=== PATIENT | male | born 1955 | race Caucasian/White ===

== ENCOUNTER 2017-11-29 16:50 | Inpatient (IN) | payer OTHER ==
--- NOTE | 2017-11-29 16:57 | PDOC ---
History of Present Illness - General History Source: Patient Exam Limitations: No Limitations - History of Present Illness Initial Comments: 11/29/17 17:13 The patient is a 62 year old male, with a significant past medical history of Lupus (on 2 mg Prednisone), who presents to the emergency department with, productive cough, fever, chills, and headache. As per patient, he was at urgent care today for symptoms when the doctors noticed pneumonia on chest x-ray and advised him to report to the ER for further management. At urgent care, he received nebulizer treatments and Tylenol. Urgent care notes he was hypoxic to 92% further prompting his visit to the ER. He denies any calf swelling or tenderness. He denies any recent travel or history of DVT or PE. He denies any recent hemoptysis dizziness. He denies any recent nausea, vomit, diarrhea or constipation. He denies any recent chest pain or shortness of breath. He denies any recent dysuria, frequency, urgency or hematuria. Allergies: Ceftriaxone sodium. Past surgical history: None reported. Social History: Nonsmoker. Denies EtOH use and recreational drug use. Primary Care Physician: Dr. Abraham Watson <Edna Bingham - Last Filed: 11/29/17 17:12> <Kacey Ontiveros - Last Filed: 11/29/17 18:29> - General Chief Complaint: Respiratory Stated Complaint: PNEUMONIA MRSA Time Seen by Provider: 11/29/17 16:54 Past History <Edna Bingham - Last Filed: 11/29/17 17:12> - Surgical History Appendectomy: Yes - Immunization History TDAP Vaccination: No - Suicide/Smoking/Psychosocial Hx Smoking Status: No Smoking History: Unknown if ever smoked Number of Cigarettes Smoked Daily: 0 <Kacey Ontiveros - Last Filed: 11/29/17 18:29> - Past Medical History Allergies/Adverse Reactions: Allergies Allergy/AdvReac Type Severity Reaction Status Date / Time ceftriaxone sodium Allergy Unknown Verified 11/29/17 18:05 [From Chen] Home Medications: Ambulatory Orders Buspirone HCl [Buspar -] 5 mg PO TID 10/24/12 Fluoxetine HCl [Prozac -] 20 mg PO Q48H 10/24/12 Fluoxetine HCl [Prozac -] 40 mg PO Q48H 10/24/12 Dapsone - 50 mg PO DAILY 11/29/17 Lisinopril 10 mg PO DAILY 11/29/17 predniSONE [Deltasone -] 2 mg PO DAILY 11/29/17 Review of Systems - Review of Systems Able to Perform ROS?: Yes Comments:: 11/29/17 17:13 +GENERAL/CONSTITUTIONAL: Fever. Chills. No weakness. HEAD, EYES, EARS, NOSE AND THROAT: No change in vision. No ear pain or discharge. No sore throat. CARDIOVASCULAR: No chest pain or shortness of breath. RESPIRATORY: Cough. No wheezing, or hemoptysis. GASTROINTESTINAL: No nausea, vomiting, diarrhea or constipation. GENITOURINARY: No dysuria, frequency, or change in urination. MUSCULOSKELETAL: No joint or muscle swelling or pain. No neck or back pain. SKIN: No rash NEUROLOGIC: Headache. No vertigo, loss of consciousness, or change in strength/ sensation. ENDOCRINE: No increased thirst. No abnormal weight change. HEMATOLOGIC/LYMPHATIC: No anemia, easy bleeding, or history of blood clots. ALLERGIC/IMMUNOLOGIC: No hives or skin allergy. All Other Systems: Reviewed and Negative <Edna Bingham - Last Filed: 11/29/17 17:12> *Physical Exam - Physical Exam Comments: 11/29/17 17:14 GENERAL: Tremulous. Awake, alert, and fully oriented, in no acute distress HEAD: No signs of trauma EYES: PERRLA, EOMI, sclera anicteric, conjunctiva clear ENT: Auricles normal inspection, hearing grossly normal, nares patent. Moist mucosa NECK: Normal ROM, supple, no lymphadenopathy, JVD, or masses +LUNGS: Crackles at the right bases. No wheezes. No accessory muscle usage. HEART: Tachycardic. Regular rhythm, normal S1 and S2, no murmurs, rubs or gallops ABDOMEN: Soft, nontender, normoactive bowel sounds. No guarding, no rebound. No masses EXTREMITIES: Normal range of motion, no edema. No erythema or tenderness. DP/PT pulses 2+ and symmetric. Warm and well perfused. NEUROLOGICAL: ANO x3. Moves all extremities. Normal speech, normal gait SKIN: Warm, Dry, normal turgor, no rashes or lesions noted. <Edna Bingham - Last Filed: 11/29/17 17:12> Heart Score/ECG Review #1 General ECG Interpretation: Sinus Rhythm, Normal Rate (91), Normal Intervals, No acute ischemic changes <Kacey Ontiveros - Last Filed: 11/29/17 18:29> ED Treatment Course - LABORATORY CBC & Chemistry Diagram: 11/29/17 17:12 11/29/17 17:12 <Kacey Ontiveros - Last Filed: 11/29/17 18:29> Medical Decision Making - Medical Decision Making 11/29/17 16:54 62 yo male h/o lupus, on prednisone 2 mg daily, here with cough congestion fever x 2 days. does feel lightheaded today. no n/v no chest pain. no leg swelling. no h/o pe or dvt. no mod factors. pt was seen at [facility] urgent care , diagnosed with pna, had low oxygen sats sent to ed for admisson. pcp is dr wynn. on exam awake alert faint crackles lung bases R > l, no wheezing. no accessory m use. heart tachy. skin warm and dry ext no edema. differential: pnuemonia, effusion, sepsis, plan labs ekg cultures, ladctate. iv hydration due to comorbidity and low oxygen sats will admit med surg for iv antiobtiocs. 11/29/17 18:03 dapsone 25mg, 50 daily prednisone 1 mg 2 mg daily angela hong wasserman. desktop support associate. <Kacey Ontiveros - Last Filed: 11/29/17 18:29> *DC/Admit/Observation/Transfer - Attestations Scribe Attestion: 11/29/17 17:14 Documentation prepared by Edna Bingham, acting as medical device assembler for Kacey Ontiveros MD. <Edna Bingham - Last Filed: 11/29/17 17:12> - Discharge Dispostion Decision to Admit order: Yes <Kacey Ontiveros - Last Filed: 11/29/17 18:29> Diagnosis at time of Disposition: Pneumonia - Discharge Dispostion Condition at time of disposition: Good - Referrals Referrals: Abraham Meehan MD [Primary Care Provider] -
[2017-11-29] MEDS ORDERED: SODIUM CHLORIDE 0.9% 1000 ML INFUS.BAG IV ONE (17:00)
[2017-11-29 17:16] LABS: PH,URINE 6.5 (4.5-8); URINE APPEARANCE Clear; URINE BILIRUBIN Negative (NEGATIVE); URINE COLOR Yellow; URINE GLUCOSE (UA) Negative (NEGATIVE); URINE KETONE Trace (NEGATIVE); URINE LEUK ESTERASE Negative (NEGATIVE); URINE NITRITE Negative (NEGATIVE); URINE PROTEIN 1+ (NEGATIVE); URINE UROBILINOGEN 0.2 (0.2-1.0)
[2017-11-29] MEDS ORDERED: VANCOMYCIN 1,000 MG in DEXTROSE 5%-WATER - 250 ML IVPB ONE (17:35)
[2017-11-29 17:36] LABS: HEMATOCRIT 35.1 % (35.4-49); HEMOGLOBIN 10.8 GM/dl (11.7-16.9); MCHC 30.8 g/dl (32.0-35.9); MEAN CELL VOLUME 71.5 fl (80-96); MEAN PLT VOLUME 8.7 fl (7.5-11.1); PLATELET COUNT 192 K/MM3 (134-434); RBC 4.91 M/mm3 (4.00-5.60); RDW 15.3 % (11.9-15.9); WHITE BLOOD COUNT 13.9 K/mm3 (4.0-10.8)
[2017-11-29] MEDS ORDERED: VANCOMYCIN 1,000 MG VIAL (RESTRICTED TO ID ONLY) ONE (17:36)
[2017-11-29] MEDS ORDERED: PIPERACILLIN/TAZOBACTAM 3.375 GM VIAL IVPB ONE (17:36)
[2017-11-29 17:40] LABS: ADD RBC MORPHOLOGY YES
[2017-11-29 17:43] LABS: EPI CELLS FEW /HPF; URINE MUCUS 2+; URINE WBC 0-2 (0-2)
[2017-11-29 17:44] LABS: URINE SPERM 1+
[2017-11-29 17:49] LABS: ALK PHOS 64 U/L (32-92); ANION GAP 7 MMOL/L (8-16); BLOOD UREA NITROGEN 20 mg/dl (7-18); CALCIUM 8.7 mg/dl (8.4-10.2); CHLORIDE 100 mmol/L (98-107); CO2 27 mmol/L (22-28); CREATININE 1.2 mg/dl (0.6-1.3); GLUCOSE,RANDOM 154 mg/dl (74-106); POTASSIUM 3.9 mmol/L (3.5-5.1); SGOT/AST 34 U/L (10-42); SGPT/ALT 25 U/L (10-40); SODIUM 134 mmol/L (136-145); TOT PROT 7.6 g/dl (6.4-8.3)
[2017-11-29] MEDS ORDERED: ALBUTEROL SO4 0.083% IH SOL 2.5 MG/3 ML VIAL.NEB. NEB PRN (18:35)
[2017-11-29 18:57] LABS: ANISOCYTOSIS 1+; TARGET CELLS OCCASIONAL
[2017-11-29 22:20] VITALS: BMI 29.7
[2017-11-29] MEDS: HEPARIN NA (PORCINE) 5,000 UNITS/ML 1ML VIAL SQ SCH (22:24)
[2017-11-30] MEDS: ACETAMINOPHEN 325 MG TABLET (FP) PO PRN (00:02)
--- NOTE | 2017-11-30 02:19 | HP ---
CHIEF COMPLAINT: PCP: HISTORY OF PRESENT ILLNESS: ER course was notable for: (1) (2) (3) Recent Travel: PAST MEDICAL HISTORY: PAST SURGICAL HISTORY: Social History: Smoking: Alcohol: Drugs: Family History: Allergies ceftriaxone sodium [From Rocephin] Allergy (Unknown, Verified 11/29/17 18:05) HOME MEDICATIONS: Home Medications Medication Instructions Recorded Buspirone HCl [Buspar -] 5 mg PO TID 10/24/12 Fluoxetine HCl [Prozac -] 20 mg PO Q48H 10/24/12 Fluoxetine HCl [Prozac -] 40 mg PO Q48H 10/24/12 Dapsone - 50 mg PO DAILY 11/29/17 Lisinopril 10 mg PO DAILY 11/29/17 predniSONE [Deltasone -] 2 mg PO DAILY 11/29/17 REVIEW OF SYSTEMS CONSTITUTIONAL: Absent: fever, chills, diaphoresis, generalized weakness, malaise, loss of appetite, weight change HEENT: Absent: rhinorrhea, nasal congestion, throat pain, throat swelling, difficulty swallowing, mouth swelling, ear pain, eye pain, visual changes CARDIOVASCULAR: Absent: chest pain, syncope, palpitations, irregular heart rate, lightheadedness , peripheral edema RESPIRATORY: Absent: cough, shortness of breath, dyspnea with exertion, orthopnea, wheezing, stridor, hemoptysis GASTROINTESTINAL: Absent: abdominal pain, abdominal distension, nausea, vomiting, diarrhea, constipation, melena, hematochezia GENITOURINARY: Absent: dysuria, frequency, urgency, hesitancy, hematuria, flank pain, genital pain MUSCULOSKELETAL: Absent: myalgia, arthralgia, joint swelling, back pain, neck pain SKIN: Absent: rash, itching, pallor HEMATOLOGIC/IMMUNOLOGIC: Absent: easy bleeding, easy bruising, lymphadenopathy, frequent infections ENDOCRINE: Absent: unexplained weight gain, unexplained weight loss, heat intolerance, cold intolerance NEUROLOGIC: Absent: headache, focal weakness or paresthesias, dizziness, unsteady gait, seizure, mental status changes, bladder or bowel incontinence PSYCHIATRIC: Absent: anxiety, depression, suicidal or homicidal ideation, hallucinations. PHYSICAL EXAMINATION Vital Signs - 24 hr 11/29/17 11/29/17 11/29/17 16:58 17:31 17:53 Temperature 100.9 F H Pulse Rate 110 H 90 88 Pulse Rate [ Apical] Respiratory 24 H Rate Blood Pressure 117/63 Blood Pressure [Right Arm] O2 Sat by Pulse 96 93 L 96 Oximetry (%) 11/29/17 11/29/17 11/29/17 18:00 18:49 19:27 Temperature 98.6 F Pulse Rate 98 H Pulse Rate [ 76 79 Apical] Respiratory 17 19 Rate Blood Pressure Blood Pressure 106/53 L 92/50 L [Right Arm] O2 Sat by Pulse 96 97 97 Oximetry (%) 11/29/17 11/29/17 11/29/17 19:35 19:55 20:02 Temperature 98.0 F Pulse Rate 72 77 Pulse Rate [ Apical] Respiratory 20 Rate Blood Pressure 90/54 L Blood Pressure [Right Arm] O2 Sat by Pulse 97 97 97 Oximetry (%) 11/29/17 11/29/17 11/29/17 20:49 23:00 23:08 Temperature Pulse Rate Pulse Rate [ 72 Apical] Respiratory 17 17 17 Rate Blood Pressure Blood Pressure 92/48 L [Right Arm] O2 Sat by Pulse 97 97 97 Oximetry (%) GENERAL: Awake, alert, and fully oriented, in no acute distress. HEAD: Normal with no signs of trauma. EYES: Pupils equal, round and reactive to light, extraocular movements intact, sclera anicteric, conjunctiva clear. No lid lag. EARS, NOSE, THROAT: Ears normal, nares patent, oropharynx clear without exudates. Moist mucous membranes. NECK: Normal range of motion, supple without lymphadenopathy, JVD, or masses. LUNGS: Breath sounds equal, clear to auscultation bilaterally. No wheezes, and no crackles. No accessory muscle use. HEART: Regular rate and rhythm, normal S1 and S2 without murmur, rub or gallop. ABDOMEN: Soft, nontender, not distended, normoactive bowel sounds, no guarding, no rebound, no masses. No hepatomegaly or splenomegaly. MUSCULOSKELETAL: Normal range of motion at all joints. No bony deformities or tenderness. No CVA tenderness. UPPER EXTREMITIES: 2+ pulses, warm, well-perfused. No cyanosis. No clubbing. No peripheral edema. LOWER EXTREMITIES: 2+ pulses, warm, well-perfused. No calf tenderness. No peripheral edema. NEUROLOGICAL: Cranial nerves II-XII intact. Normal speech. Normal gait. PSYCHIATRIC: Cooperative. Good eye contact. Appropriate mood and affect. SKIN: Warm, dry, normal turgor, no rashes or lesions noted, normal capillary refill. Laboratory Results - last 24 hr 11/29/17 11/29/17 11/29/17 17:10 17:12 17:12 WBC 13.9 H RBC 4.91 Hgb 10.8 L Hct 35.1 L MCV 71.5 L MCH 22.0 L MCHC 30.8 L RDW 15.3 Plt Count 192 MPV 8.7 Absolute Neuts (auto) 13.0 Neutrophils % No Result Required. Neutrophils % (Manual) 86.0 H Band Neutrophils % 6.0 Lymphocytes % No Result Required. Lymphocytes % (Manual) 6.0 L Monocytes % (Manual) 1 L Metamyelocytes 1 Hypochromia 1+ Anisocytosis 1+ Microcytosis 1+ Target Cells Occasional Sodium 134 L Potassium 3.9 Chloride 100 Carbon Dioxide 27 Anion Gap 7 L BUN 20 H Creatinine 1.2 Creat Clearance w eGFR > 60 Random Glucose 154 H Lactic Acid Calcium 8.7 Total Bilirubin 1.0 AST 34 ALT 25 Alkaline Phosphatase 64 Total Protein 7.6 Albumin 4.0 Urine Color Yellow Urine Appearance Clear Urine pH 6.5 Ur Specific [place] 1.020 Urine Protein 1+ H Urine Glucose (UA) Negative Urine Ketones Trace Urine Blood Negative Urine Nitrite Negative Urine Bilirubin Negative Urine Urobilinogen 0.2 Ur Leukocyte Esterase Negative Urine RBC 2-5 Urine WBC 0-2 Ur Epithelial Cells Few Urine Mucus 2+ 11/29/17 11/29/17 17:12 19:15 WBC RBC Hgb Hct MCV MCH MCHC RDW Plt Count MPV Absolute Neuts (auto) Neutrophils % Neutrophils % (Manual) Band Neutrophils % Lymphocytes % Lymphocytes % (Manual) Monocytes % (Manual) Metamyelocytes Hypochromia Anisocytosis Microcytosis Target Cells Sodium Potassium Chloride Carbon Dioxide Anion Gap BUN Creatinine Creat Clearance w eGFR Random Glucose Lactic Acid 2.6 H* 2.5 H* Calcium Total Bilirubin AST ALT Alkaline Phosphatase Total Protein Albumin Urine Color Urine Appearance Urine pH Ur Specific [place] Urine Protein Urine Glucose (UA) Urine Ketones Urine Blood Urine Nitrite Urine Bilirubin Urine Urobilinogen Ur Leukocyte Esterase Urine RBC Urine WBC Ur Epithelial Cells Urine Mucus ASSESSMENT/PLAN:
--- NOTE | 2017-11-30 02:23 | HP ---
CHIEF COMPLAINT: Cough, chills PCP: Dr. Abraham Watson HISTORY OF PRESENT ILLNESS: 62 year old male with a PMH significant for Lupus, HTN, Depression/anxiety, presented to the ED today with cough, congestion, and fever for 2 days. He was sent to the ED from [facility] after his CXR showed RLL consolidation and an O2 sat of 92%. Patient reports he started feeling sick 2 days ago with productive cough with yellow mucus, weakness, and chills. He did not receive the flu vaccine this year. He is on daily 2 mg of Prednisone and Dapsone for his Lupus, he denies ever having pneumonia in the past. He states he has never had a "lupus flare-up" since he was diagnosed 15 years ago. Upon admission to the ED, his temperature was 100.9, pulse 110, RR: 24. Labs notible for elevated WBC (13.9) and Lactic Acid (2.6). He was given a dose of Levaquin 750 mg IVP and NS. He reports he is feeling better since arriving at the ED. He denies dizziness, syncope, chest pain, palpitations, n/v/d. Recent Travel: No PAST MEDICAL HISTORY: Lupus Depression/Anxiety PAST SURGICAL HISTORY: B/l knee replacement Social History: Smoking: Never Alcohol:Never Drugs: Denies Family History: Father: Diabetes, in his 60s Allergies ceftriaxone sodium [From Rocephin] Allergy (Unknown, Verified 11/29/17 18:05) HOME MEDICATIONS: Home Medications Medication Instructions Recorded Buspirone HCl [Buspar -] 5 mg PO TID 10/24/12 Fluoxetine HCl [Prozac -] 20 mg PO Q48H 10/24/12 Fluoxetine HCl [Prozac -] 40 mg PO Q48H 10/24/12 Dapsone - 50 mg PO DAILY 11/29/17 Lisinopril 10 mg PO DAILY 11/29/17 predniSONE [Deltasone -] 2 mg PO DAILY 11/29/17 REVIEW OF SYSTEMS CONSTITUTIONAL: (+) fever, chills Absent: , diaphoresis, generalized weakness, malaise, loss of appetite, weight change HEENT: Absent: rhinorrhea, nasal congestion, throat pain, throat swelling, difficulty swallowing, mouth swelling, ear pain, eye pain, visual changes CARDIOVASCULAR: Absent: chest pain, syncope, palpitations, irregular heart rate, lightheadedness , peripheral edema RESPIRATORY: (+) cough Absent: , shortness of breath, dyspnea with exertion, orthopnea, wheezing, stridor, hemoptysis GASTROINTESTINAL: Absent: abdominal pain, abdominal distension, nausea, vomiting, diarrhea, constipation, melena, hematochezia GENITOURINARY: Absent: dysuria, frequency, urgency, hesitancy, hematuria, flank pain, genital pain MUSCULOSKELETAL: Absent: myalgia, arthralgia, joint swelling, back pain, neck pain SKIN: Absent: rash, itching, pallor HEMATOLOGIC/IMMUNOLOGIC: Absent: easy bleeding, easy bruising, lymphadenopathy, frequent infections ENDOCRINE: Absent: unexplained weight gain, unexplained weight loss, heat intolerance, cold intolerance NEUROLOGIC: Absent: headache, focal weakness or paresthesias, dizziness, unsteady gait, seizure, mental status changes, bladder or bowel incontinence PSYCHIATRIC: Absent: anxiety, depression, suicidal or homicidal ideation, hallucinations. PHYSICAL EXAMINATION Vital Signs - 24 hr 11/29/17 11/29/17 11/29/17 16:58 17:31 17:53 Temperature 100.9 F H Pulse Rate 110 H 90 88 Pulse Rate [ Apical] Respiratory 24 H Rate Blood Pressure 117/63 Blood Pressure [Right Arm] O2 Sat by Pulse 96 93 L 96 Oximetry (%) 11/29/17 11/29/17 11/29/17 18:00 18:49 19:27 Temperature 98.6 F Pulse Rate 98 H Pulse Rate [ 76 79 Apical] Respiratory 17 19 Rate Blood Pressure Blood Pressure 106/53 L 92/50 L [Right Arm] O2 Sat by Pulse 96 97 97 Oximetry (%) 11/29/17 11/29/17 11/29/17 19:35 19:55 20:02 Temperature 98.0 F Pulse Rate 72 77 Pulse Rate [ Apical] Respiratory 20 Rate Blood Pressure 90/54 L Blood Pressure [Right Arm] O2 Sat by Pulse 97 97 97 Oximetry (%) 11/29/17 11/29/17 11/29/17 20:49 23:00 23:08 Temperature Pulse Rate Pulse Rate [ 72 Apical] Respiratory 17 17 17 Rate Blood Pressure Blood Pressure 92/48 L [Right Arm] O2 Sat by Pulse 97 97 97 Oximetry (%) GENERAL: Awake, alert, and fully oriented, in no acute distress. HEAD: Normal with no signs of trauma. EYES: Pupils equal, round and reactive to light, extraocular movements intact, sclera anicteric, conjunctiva clear. No lid lag. EARS, NOSE, THROAT: +NC nares patent, oropharynx clear without exudates. Moist mucous membranes. NECK: Normal range of motion, supple without lymphadenopathy, JVD, or masses. LUNGS: Mild crackles to RLL, no wheezes. No accessory muscle use. HEART: Regular rate and rhythm, normal S1 and S2 without murmur, rub or gallop. ABDOMEN: Obese, soft, nontender, not distended, normoactive bowel sounds, no guarding, no rebound, no masses. No hepatomegaly or splenomegaly. MUSCULOSKELETAL: Normal range of motion at all joints. No bony deformities or tenderness. No CVA tenderness. UPPER EXTREMITIES: 2+ pulses, warm, well-perfused. No cyanosis. No clubbing. No peripheral edema. LOWER EXTREMITIES: 2+ pulses, warm, well-perfused. No calf tenderness. No peripheral edema. NEUROLOGICAL: No facial droop, tongue midline, Normal speech. Normal gait. PSYCHIATRIC: Cooperative. Good eye contact. Appropriate mood and affect. SKIN: Warm, dry, normal turgor, no rashes or lesions noted, normal capillary refill. Laboratory Results - last 24 hr 11/29/17 11/29/17 11/29/17 17:10 17:12 17:12 WBC 13.9 H RBC 4.91 Hgb 10.8 L Hct 35.1 L MCV 71.5 L MCH 22.0 L MCHC 30.8 L RDW 15.3 Plt Count 192 MPV 8.7 Absolute Neuts (auto) 13.0 Neutrophils % No Result Required. Neutrophils % (Manual) 86.0 H Band Neutrophils % 6.0 Lymphocytes % No Result Required. Lymphocytes % (Manual) 6.0 L Monocytes % (Manual) 1 L Metamyelocytes 1 Hypochromia 1+ Anisocytosis 1+ Microcytosis 1+ Target Cells Occasional Sodium 134 L Potassium 3.9 Chloride 100 Carbon Dioxide 27 Anion Gap 7 L BUN 20 H Creatinine 1.2 Creat Clearance w eGFR > 60 Random Glucose 154 H Lactic Acid Calcium 8.7 Total Bilirubin 1.0 AST 34 ALT 25 Alkaline Phosphatase 64 Total Protein 7.6 Albumin 4.0 Urine Color Yellow Urine Appearance Clear Urine pH 6.5 Ur Specific [place] 1.020 Urine Protein 1+ H Urine Glucose (UA) Negative Urine Ketones Trace Urine Blood Negative Urine Nitrite Negative Urine Bilirubin Negative Urine Urobilinogen 0.2 Ur Leukocyte Esterase Negative Urine RBC 2-5 Urine WBC 0-2 Ur Epithelial Cells Few Urine Mucus 2+ 11/29/17 11/29/17 17:12 19:15 WBC RBC Hgb Hct MCV MCH MCHC RDW Plt Count MPV Absolute Neuts (auto) Neutrophils % Neutrophils % (Manual) Band Neutrophils % Lymphocytes % Lymphocytes % (Manual) Monocytes % (Manual) Metamyelocytes Hypochromia Anisocytosis Microcytosis Target Cells Sodium Potassium Chloride Carbon Dioxide Anion Gap BUN Creatinine Creat Clearance w eGFR Random Glucose Lactic Acid 2.6 H* 2.5 H* Calcium Total Bilirubin AST ALT Alkaline Phosphatase Total Protein Albumin Urine Color Urine Appearance Urine pH Ur Specific [place] Urine Protein Urine Glucose (UA) Urine Ketones Urine Blood Urine Nitrite Urine Bilirubin Urine Urobilinogen Ur Leukocyte Esterase Urine RBC Urine WBC Ur Epithelial Cells Urine Mucus ECG NSR; Normal Rate (91), Normal Intervals, No acute ischemic changes ASSESSMENT/PLAN: 62 year old male with a PMH significant for Lupus, HTN, Depression/anxiety, presented to the ED today with cough, congestion, and fever for 2 days. He has been admitted for IV antibiotic treatment for sepsis secondary to CAP. Sepsis secondary to CAP -Meets SIRS criteria: T: 100.9, P: 110, RR: 24, WBC 13.9 -Lactic acid elevated at 2.6 -CXR from urgent care patient reports showed RLL consolidation -Given Levaquin 750 mg IVP in ED, will order 500 mg IVP for tomorrow -Supplemental O2 @2LPM -Blood culture pending -Monitor CBC -ID consult ordered Lupus -Continue Dapsone 50 mg qday -Continue Prednisone 2 mg qday -Followed by dyer assistant Dr. Maru Kwan HTN -Currently hypotensive; hold home Lisinopril 10 mg -Monitor BP Depression/Anxiety -Stable - Continue Prozac 20 mg QOD 40 mg QOD - Contineu Buspar 5 mg TID FEN --NS @100 cc/hr --Electrolytes replete as indicated --Regular diet DVT Prophylaxis --Heparin Sq Dispo: pt currently requires further inpatient care. FULL CODE Visit type - Emergency Visit Emergency Visit: Yes ED Registration Date: 11/29/17 Care time: The patient presented to the Emergency Department on the above date and was hospitalized for further evaluation of their emergent condition. - New Patient This patient is new to me today: Yes Date on this admission: 11/30/17 - Critical Care Critical Care patient: No
[2017-11-30] MEDS ORDERED: SODIUM CHLORIDE 1,000 ML IV SCH ×2 (02:30→11:45)
[2017-11-30] MEDS: HEPARIN NA (PORCINE) 5,000 UNITS/ML 1ML VIAL SQ SCH ×2 (05:08→21:26)
[2017-11-30] MEDS: busPIRone HCL 5 MG TABLET PO SCH ×3 (05:08→21:26)
[2017-11-30 09:18] LABS: HEMATOCRIT 27.6 % (35.4-49); HEMOGLOBIN 8.7 GM/dl (11.7-16.9); MCH 22.4 pg (25.7-33.7); MCHC 31.4 g/dl (32.0-35.9); MEAN CELL VOLUME 71.3 fl (80-96); MEAN PLT VOLUME 10.1 fl (7.5-11.1); PLATELET COUNT 151 K/MM3 (134-434); RBC 3.88 M/mm3 (4.00-5.60); RDW 15.4 % (11.9-15.9); WHITE BLOOD COUNT 13.1 K/mm3 (4.0-10.8)
[2017-11-30 09:25] LABS: ANION GAP 3 MMOL/L (8-16); BLOOD UREA NITROGEN 16 mg/dl (7-18); CHLORIDE 105 mmol/L (98-107); CO2 27 mmol/L (22-28); GLUCOSE,RANDOM 67 mg/dl (74-106); POTASSIUM 4.1 mmol/L (3.5-5.1); SODIUM 135 mmol/L (136-145)
[2017-11-30] MEDS ORDERED: DAPSONE 100 MG TABLET PO SCH (10:00)
[2017-11-30] MEDS ORDERED: FLUoxetine HCL 20 MG CAPSULE (FP) PO SCH (10:00)
[2017-11-30] MEDS: predniSONE 1 MG TABLET (FP) PO SCH (10:28)
[2017-11-30] MEDS ORDERED: DAPSONE 25 MG TABLET PO SCH (11:06)
--- NOTE | 2017-11-30 11:11 | EKG ---
Test Reason : Blood Pressure : / mmHG Vent. Rate : 091 BPM Atrial Rate : 091 BPM P-R Int : 140 ms QRS Dur : 094 ms QT Int : 352 ms P-R-T Axes : 025 -30 035 degrees QTc Int : 432 ms NORMAL SINUS RHYTHM WITH SINUS ARRHYTHMIA POSSIBLE LEFT ATRIAL ENLARGEMENT LEFT AXIS DEVIATION LEFT VENTRICULAR HYPERTROPHY ABNORMAL ECG NO PREVIOUS ECGS AVAILABLE Confirmed by MISA BUSTOS MD ([id number]) on 11/30/2017 11:11:28 AM Referred By: Elisabeth ARIAS Confirmed By:MISA BUSTOS MD
[2017-11-30] MEDS ORDERED: SODIUM CHLORIDE 1,000 ML IV STA (11:55)
--- NOTE | 2017-11-30 13:13 | PN ---
Progress Note (short form) - Note Progress Note: Subjective: The patient was seen and examined at the bedside, he reports feeling good today. He denies any chills, cough, dizziness. Current Medications Generic Name Dose Route Start Last Admin Trade Name Freq PRN Reason Stop Dose Admin Acetaminophen 650 mg 11/29/17 18:35 11/30/17 00:02 Tylenol - PO 650 mg Q4H PRN Administration PAIN 1-3 Albuterol Sulfate 1 amp 11/29/17 18:35 Ventolin 0.083% Nebulizer Soln - NEB Q4H PRN SHORT OF BREATH/WHEEZING Buspirone HCl 5 mg 11/30/17 06:00 11/30/17 05:08 Buspar - PO 5 mg TID [facility] Administration Dapsone 50 mg 11/30/17 11:06 Dapsone - PO DAILY [facility] Fluoxetine HCl 20 mg 11/30/17 10:00 11/30/17 10:28 Prozac - PO 20 mg Q2D@1000 [facility] Administration Fluoxetine HCl 40 mg 12/02/17 10:00 Prozac - PO Q2D@1000 [facility] Heparin Sodium (Porcine) 5,000 unit 11/29/17 22:00 11/30/17 05:08 Heparin - SQ 5,000 unit TID [facility] Administration Levofloxacin 500 mg in 100 mls @ 100 mls/hr 11/30/17 08:00 11/30/17 10:29 Levaquin 500 Mg Premixed Ivpb - IVPB 100 mls/hr DAILY@0800 [facility] Administration Protocol Sodium Chloride 1,000 mls @ 100 mls/hr 11/30/17 11:45 Normal Saline - IV ASDIR [facility] Sodium Chloride 1,000 mls @ 500 mls/hr 11/30/17 11:55 Normal Saline - IV 11/30/17 13:54 ASDIR STA Prednisone 2 mg 11/30/17 10:00 11/30/17 10:28 Deltasone - PO 2 mg DAILY [facility] Administration Objective: Vital Signs Period Temp Pulse Resp BP Sys/Horne Pulse Ox Last 24 Hr 98.0 F-100.9 F 72-110 17-24 90-117/48-63 93-97 Physical Exam: General: NAD, A&Ox3 HEENT: Dry mucous membranes Lungs: CTA bilaterally Heart: RRR, S1S2 Abd: Soft, non-tender, non-distended CBCD WBC 13.1 K/mm3 (4.0-10.8) H 11/30/17 06:30 RBC 3.88 M/mm3 (4.00-5.60) L 11/30/17 06:30 Hgb 8.7 GM/dl (11.7-16.9) L 11/30/17 06:30 Hct 27.6 % (35.4-49) L D 11/30/17 06:30 MCV 71.3 fl (80-96) L 11/30/17 06:30 MCHC 31.4 g/dl (32.0-35.9) L 11/30/17 06:30 RDW 15.4 % (11.9-15.9) 11/30/17 06:30 Plt Count 151 K/MM3 (134-434) D 11/30/17 06:30 MPV 10.1 fl (7.5-11.1) D 11/30/17 06:30 CMP Sodium 135 mmol/L (136-145) L 11/30/17 06:45 Potassium 4.1 mmol/L (3.5-5.1) 11/30/17 06:45 Chloride 105 mmol/L (98-107) 11/30/17 06:45 Carbon Dioxide 27 mmol/L (22-28) 11/30/17 06:45 Anion Gap 3 MMOL/L (8-16) L 11/30/17 06:45 BUN 16 mg/dl (7-18) 11/30/17 06:45 Creatinine 1.0 mg/dl (0.6-1.3) 11/30/17 06:45 Creat Clearance w eGFR > 60 (>60) 11/30/17 06:45 Random Glucose 67 mg/dl (74-106) L D 11/30/17 06:45 Calcium 8.0 mg/dl (8.4-10.2) L 11/30/17 06:45 Total Bilirubin 1.0 mg/dl (0.2-1.0) 11/29/17 17:12 AST 34 U/L (10-42) 11/29/17 17:12 ALT 25 U/L (10-40) 11/29/17 17:12 Alkaline Phosphatase 64 U/L (32-92) 11/29/17 17:12 Total Protein 7.6 g/dl (6.4-8.3) 11/29/17 17:12 Albumin 4.0 g/dl (3.5-5.0) 11/29/17 17:12 Assessment: This is a 62 year old male with PMHx of lupus, HTN, depression/ anxiety, who presented to the ED with 2 days f cough, fever, congestion. Plan: 1) Severe sepsis 2/2 community acquired pneumonia - Chest X-ray with RUL infiltrate - WBC remain elevated, continue to trend - Tmax 100.9 - Was started on Levaquin, will continue for now pending further recommendations from ID - Elevated lactic acid: Will give NS 1000ml bolus and then start maintenance fluids. Recheck lactic acid - F/u urine legionella Ag - F/u ID consult 2) Hypotension - Likely 2/2 dehydration vs. sepsis - Management as above: IV fluid bolus. Encourage po intake as wel - Hold Lisinopril 3) Depression/anxiety - Continue Buspar - Continue Prozac 4) F/E/N: - IV fluids - Monitor electrolytes - Regular diet 5) Prophylaxis: - Heparin 5,000u sq tid - OOB ambulating 6) Dispo: - Requires continued inpatient care CODE STATUS: FULL CODE Visit type - Emergency Visit Emergency Visit: Yes ED Registration Date: 11/29/17 Care time: The patient presented to the Emergency Department on the above date and was hospitalized for further evaluation of their emergent condition. - New Patient This patient is new to me today: Yes Date on this admission: 11/30/17 - Critical Care Critical Care patient: No
[2017-11-30] MEDS ORDERED: PT OWN MED DRAWER 7, Y5N ONE (14:39)
--- NOTE | 2017-11-30 14:56 | CON.ID ---
Consult Consult Specialty:: infectious disease Referred by:: hospitalist service Reason for Consultation:: pneumonia - History of Present Illness Chief Complaint: developed cough 2 days ago History of Present Illness: yesterday cough worsened with shaking went to [facility] temp 102.5 oxygen sat 92%- cxray rul infiltrae- sent to ED received jo/nerissa feels better today no hemoptysis minimal productive cough does not smoke lives alone mother is in [place] called the urgicenter- MRSA was an errror- will d/c isolation developed marrow suppression after one month of ceftriaxone for lyme many years ago no hisotyr of TB, no history of positive PPD - History Source History Provided By: Patient, Medical Record Limitations to Obtaining History: Clinical Condition - Past Medical History Pulmonary: No: Pneumonia Rheumatology: Yes: Lupus - Past Surgical History Past Surgical History: Yes: Joint Replacement Additional Surgical History: bilateral knee - Alcohol/Substance Use Hx Alcohol Use: No - Smoking History Smoking history: Never smoked Have you smoked in the past 12 months: No Aproximately how many cigarettes per day: 0 - Social History Usual Living Arrangement: With Parent ADL: Independent Occupation: retail, self employed History of Recent Travel: No Home Medications - Allergies Allergies/Adverse Reactions: Allergies Allergy/AdvReac Type Severity Reaction Status Date / Time ceftriaxone sodium Allergy Unknown Verified 11/29/17 18:05 [From Rocephin] - Home Medications Home Medications: Ambulatory Orders Buspirone HCl [Buspar -] 5 mg PO TID 10/24/12 Fluoxetine HCl [Prozac -] 20 mg PO Q48H 10/24/12 Fluoxetine HCl [Prozac -] 40 mg PO Q48H 10/24/12 Dapsone - 50 mg PO DAILY 11/29/17 Lisinopril 10 mg PO DAILY 11/29/17 predniSONE [Deltasone -] 2 mg PO DAILY 11/29/17 Family Disease History - Family Disease History Family History: Denies Review of Systems - Review of Systems Constitutional: reports: Fever Eyes: reports: No Symptoms HENT: denies: Throat Pain Neck: denies: Decreased ROM Cardiovascular: denies: Chest Pain Respiratory: reports: Cough Gastrointestinal: denies: Abdominal Pain, Diarrhea Genitourinary: reports: No Symptoms Integumentary: reports: No Symptoms Neurological: reports: No Symptoms Endocrine: reports: No Symptoms Physical Exam Vital Signs: Vital Signs Temperature 98.7 F 11/30/17 14:31 Pulse Rate 62 11/30/17 14:31 Respiratory Rate 18 11/30/17 14:31 Blood Pressure 106/54 L 11/30/17 14:31 O2 Sat by Pulse Oximetry (%) 93 L 11/30/17 14:31 Constitutional: Yes: Well Nourished, No Distress Eyes: Yes: Conjunctiva Clear HENT: No: Pharyngeal Erythema, Thrush Neck: Yes: Supple, Trachea Midline Cardiovascular: Yes: Regular Rate and Rhythm Respiratory: Yes: Regular, CTA Bilaterally Gastrointestinal: Yes: Normal Bowel Sounds, Soft ...Rectal Exam: Yes: Deferred Renal/: No: CVA Tenderness - Left, CVA Tenderness - Right Breast(s): Yes: WNL Musculoskeletal: Yes: WNL Extremities: Yes: WNL Edema: No Psychiatric: Yes: Alert, Oriented Labs: CBC, BMP 11/30/17 06:30 11/30/17 06:45 Imaging - Results Chest X-ray: Report Reviewed, Image Reviewed (rul infiltrate) Problem List - Problems (1) Pneumonia Code(s): J18.9 - PNEUMONIA, UNSPECIFIED ORGANISM (2) Microcytic anemia Code(s): D50.9 - IRON DEFICIENCY ANEMIA, UNSPECIFIED (3) Lupus Code(s): L93.0 - DISCOID LUPUS ERYTHEMATOSUS Assessment/Plan doing well continue levaquin check legionella urianry antigen overall improved anemia history of lupus
[2017-12-01] MEDS: HEPARIN NA (PORCINE) 5,000 UNITS/ML 1ML VIAL SQ SCH ×3 (05:53→21:38)
[2017-12-01] MEDS: busPIRone HCL 5 MG TABLET PO SCH ×3 (05:54→21:38)
[2017-12-01 08:33] LABS: ALBUMIN 2.9 g/dl (3.5-5.0); ALK PHOS 44 U/L (32-92); ANION GAP 4 MMOL/L (8-16); BILIRUBIN,TOTAL 0.6 mg/dl (0.2-1.0); BLOOD UREA NITROGEN 10 mg/dl (7-18); CALCIUM 8.2 mg/dl (8.4-10.2); CHLORIDE 107 mmol/L (98-107); CO2 26 mmol/L (22-28); CREATININE 0.9 mg/dl (0.6-1.3); GLUCOSE,RANDOM 86 mg/dl (74-106); SGOT/AST 24 U/L (10-42); SGPT/ALT 22 U/L (10-40); SODIUM 137 mmol/L (136-145); TOT PROT 5.7 g/dl (6.4-8.3)
[2017-12-01 09:22] LABS: BASO % 0.2 % (0-2.0); EOS % 2.9 % (0-4.5); HEMOGLOBIN 8.1 GM/dL (11.7-16.9); LYMPH % 18.8 % (8-40); MCH 21.4 pg (25.7-33.7); MCHC 31.1 g/dl (32.0-35.9); MEAN CELL VOLUME 68.6 fl (80-96); MEAN PLT VOLUME 9.1 fl (7.5-11.1); MONO % 7.2 % (3.8-10.2); NEUT % 70.9 % (42.8-82.8); PLATELET COUNT 121 K/MM3 (134-434); RBC 3.79 M/mm3 (4.00-5.60); RDW 16.1 % (11.9-15.9); WHITE BLOOD COUNT 7.4 K/mm3 (4.0-10.0)
--- NOTE | 2017-12-01 09:25 | PN ---
Progress Note, Physician History of Present Illness: Awake, alert Ambulatory C/O cough productive of greenish sputum No c/o chest pain/ dyspnea Temps down Afebrile WBC pending - Current Medication List Current Medications: Active Medications Acetaminophen (Tylenol -) 650 mg PO Q4H PRN PRN Reason: PAIN 1-3 Last Admin: 11/30/17 00:02 Dose: 650 mg Albuterol Sulfate (Ventolin 0.083% Nebulizer Soln -) 1 amp NEB Q4H PRN PRN Reason: SHORT OF BREATH/WHEEZING Buspirone HCl (Buspar -) 5 mg PO TID [facility] Last Admin: 12/01/17 05:54 Dose: 5 mg Dapsone (Dapsone -) 50 mg PO DAILY [facility] Fluoxetine HCl (Prozac -) 20 mg PO Q2D@1000 [facility] Last Admin: 11/30/17 10:28 Dose: 20 mg Fluoxetine HCl (Prozac -) 40 mg PO Q2D@1000 [facility] Heparin Sodium (Porcine) (Heparin -) 5,000 unit SQ TID [facility] Last Admin: 12/01/17 05:53 Dose: 5,000 unit Levofloxacin (Levaquin 500 Mg Premixed Ivpb -) 500 mg in 100 mls @ 100 mls/hr IVPB DAILY@0800 [facility]; Protocol Last Admin: 12/01/17 08:51 Dose: 100 mls/hr Sodium Chloride (Normal Saline -) 1,000 mls @ 100 mls/hr IV ASDIR [facility] Last Admin: 11/30/17 21:24 Dose: 100 mls/hr Prednisone (Deltasone -) 2 mg PO DAILY [facility] Last Admin: 11/30/17 10:28 Dose: 2 mg - Objective Vital Signs: Vital Signs Temperature 98.2 F 12/01/17 06:50 Pulse Rate 64 12/01/17 06:50 Respiratory Rate 18 12/01/17 06:50 Blood Pressure 127/66 12/01/17 06:50 O2 Sat by Pulse Oximetry (%) 91 L 12/01/17 06:50 Constitutional: Yes: No Distress Eyes: Yes: Conjunctiva Clear Cardiovascular: Yes: Regular Rate and Rhythm, S1, S2 Respiratory: Yes: CTA Bilaterally Gastrointestinal: Yes: Normal Bowel Sounds, Soft. No: Tenderness Edema: No Labs: CBC, BMP 12/01/17 07:45 Assessment/Plan Community acquired v. atypical pneumonia Fever/ leukocytosis Lactic acidosis resolved Cephalosporin intolerance ( marrow suppression) Await c/s, legionella/ pneumococcal ag Sputum c/s ordered Continue empiric levaquin
--- NOTE | 2017-12-01 09:29 | PN ---
Physical Exam: SUBJECTIVE: Patient seen and examined, patient is ambulatory throughout nursing station, Denies any dyspnea on exertion moist cough is noted OBJECTIVE: patient is a 62 year old male with PMHx of lupus, Thalassemia, HTN, depression/ anxiety, Patient was admitted from the emergency Department for sepsis secondary to right upper lobe pneumonia Vital Signs Period Temp Pulse Resp BP Sys/Horne Pulse Ox Last 24 Hr 97.7 F-99.0 F 57-68 17-20 106-135/54-72 91-96 GENERAL: The patient is awake, alert, and fully oriented, in no acute distress. HEAD: Normal with no signs of trauma. EYES: PERRL, extraocular movements intact, sclera anicteric, conjunctiva clear. No ptosis. ENT: Ears normal, nares patent, oropharynx clear without exudates, moist mucous membranes. NECK: Trachea midline, full range of motion, supple. LUNGS: Breath sounds equal,Crackles noted to right lower and right upper lobe cleared to left apex and base, no wheezes, no accessory muscle use. HEART: Regular rate and rhythm, S1, S2 without murmur, rub or gallop. ABDOMEN: Soft, nontender, nondistended, normoactive bowel sounds, no guarding, no rebound, no hepatosplenomegaly, no masses. EXTREMITIES: 2+ pulses, warm, well-perfused, no edema. NEUROLOGICAL: Cranial nerves II through XII grossly intact. Normal speech, gait not observed. PSYCH: Normal mood, normal affect. SKIN: Warm, dry, normal turgor, no rashes or lesions noted Laboratory Results - last 24 hr 11/30/17 12/01/17 17:30 07:45 Sodium 137 Potassium 4.0 Chloride 107 Carbon Dioxide 26 Anion Gap 4 L BUN 10 Creatinine 0.9 Creat Clearance w eGFR > 60 Random Glucose 86 D Lactic Acid 1.0 Calcium 8.2 L Total Bilirubin 0.6 AST 24 D ALT 22 Alkaline Phosphatase 44 D Total Protein 5.7 L Albumin 2.9 L CBC WBC 7.4 K/mm3 (4.0-10.0) 12/01/17 07:45 RBC 3.79 M/mm3 (4.00-5.60) L 12/01/17 07:45 Hgb 8.1 GM/dL (11.7-16.9) L 12/01/17 07:45 Hct 26.0 % (35.4-49) L 12/01/17 07:45 MCV 68.6 fl (80-96) L 12/01/17 07:45 MCH 21.4 pg (25.7-33.7) L 12/01/17 07:45 MCHC 31.1 g/dl (32.0-35.9) L 12/01/17 07:45 RDW 16.1 % (11.9-15.9) H 12/01/17 07:45 Plt Count 121 K/MM3 (134-434) L 12/01/17 07:45 MPV 9.1 fl (7.5-11.1) 12/01/17 07:45 Absolute Neuts (auto) 5.3 K/mm3 (1.5-8.0) 12/01/17 07:45 Neutrophils % 70.9 % (42.8-82.8) 12/01/17 07:45 Neutrophils % (Manual) 86.0 % (42.8-82.8) H 11/29/17 17:12 Band Neutrophils % 6.0 % (0-10) 11/29/17 17:12 Lymphocytes % 18.8 % (8-40) 12/01/17 07:45 Lymphocytes % (Manual) 6.0 % (8-40) L 11/29/17 17:12 Monocytes % 7.2 % (3.8-10.2) 12/01/17 07:45 Monocytes % (Manual) 1 % (3.8-10.2) L 11/29/17 17:12 Eosinophils % 2.9 % (0-4.5) 12/01/17 07:45 Basophils % 0.2 % (0-2.0) 12/01/17 07:45 Nucleated RBC % 0 % (0-0) 12/01/17 07:45 Metamyelocytes 1 % (0-2) 11/29/17 17:12 Hypochromia 1+ 11/29/17 17:12 Anisocytosis 1+ 11/29/17 17:12 Microcytosis 1+ 11/29/17 17:12 Target Cells Occasional 11/29/17 17:12 Active Medications Generic Name Dose Route Start Last Admin Trade Name Freq PRN Reason Stop Dose Admin Acetaminophen 650 mg 11/29/17 18:35 11/30/17 00:02 Tylenol - PO 650 mg Q4H PRN Administration PAIN 1-3 Albuterol Sulfate 1 amp 11/29/17 18:35 Ventolin 0.083% Nebulizer Soln - NEB Q4H PRN SHORT OF BREATH/WHEEZING Buspirone HCl 5 mg 11/30/17 06:00 12/01/17 05:54 Buspar - PO 5 mg TID [facility] Administration Dapsone 50 mg 11/30/17 11:06 Dapsone - PO DAILY [facility] Fluoxetine HCl 20 mg 11/30/17 10:00 11/30/17 10:28 Prozac - PO 20 mg Q2D@1000 [facility] Administration Fluoxetine HCl 40 mg 12/02/17 10:00 Prozac - PO Q2D@1000 [facility] Heparin Sodium (Porcine) 5,000 unit 11/29/17 22:00 12/01/17 05:53 Heparin - SQ 5,000 unit TID [facility] Administration Levofloxacin 500 mg in 100 mls @ 100 mls/hr 11/30/17 08:00 12/01/17 08:51 Levaquin 500 Mg Premixed Ivpb - IVPB 100 mls/hr DAILY@0800 [facility] Administration Protocol Sodium Chloride 1,000 mls @ 100 mls/hr 11/30/17 11:45 11/30/17 21:24 Normal Saline - IV 100 mls/hr ASDIR [facility] Administration Prednisone 2 mg 11/30/17 10:00 11/30/17 10:28 Deltasone - PO 2 mg DAILY [facility] Administration Microbiology 11/30/17 21:30 Legionella Antigen - Final, Negative Urine For Antigen Detection Streptococcus pneumoniae Antigen (M - Final, Negative 11/29/17 18:35 MRSA Screen - Final Nares - Mrsa Screen - Right NO MRSA ISOLATED 11/29/17 18:35 MRSA Screen - Final Nares - Mrsa Screen - Left NO MRSA ISOLATED 11/29/17 17:10 Urine Culture - Final Urine - Urine Clean Catch 11/29/17 17:32 Blood Culture - Preliminary Blood - Peripheral Venous NO GROWTH OBTAINED AFTER 24 HOURS, INCUBATION TO CONTINUE FOR 4 DAYS. 11/29/17 17:12 Blood Culture - Preliminary Blood - Peripheral Venous NO GROWTH OBTAINED AFTER 24 HOURS, INCUBATION TO CONTINUE FOR 4 DAYS. Imaging Chest x-ray: right upper lobe infiltrate ASSESSMENT/PLAN: 1) Severe sepsis 2/2 community acquired pneumonia - leukocytosis and lactic acidosis resolved, patient is afebrile - continue levaquin day 2 - urine antigens noted, blood and urine culture negative to date - ID Dr Dillard consulted and following 2) Hypotension - resolved, restart lisinopril tommorow 3) Depression/anxiety - Continue Buspar - Continue Prozac 4) F/E/N: - regular diet - Monitor electrolytes - Regular diet 5) Prophylaxis: - Heparin 5,000u sq tid - OOB ambulating 6) Dispo: - Requires continued inpatient care CODE STATUS: FULL CODE
[2017-12-01] MEDS: predniSONE 1 MG TABLET (FP) PO SCH (10:26)
[2017-12-01] MEDS: ACETAMINOPHEN 325 MG TABLET (FP) PO PRN (23:54)
[2017-12-02] MEDS: HEPARIN NA (PORCINE) 5,000 UNITS/ML 1ML VIAL SQ SCH (06:03)
[2017-12-02] MEDS: busPIRone HCL 5 MG TABLET PO SCH (06:04)
[2017-12-02 08:24] LABS: BASO % 0.6 % (0-2.0); EOS % 2.4 % (0-4.5); HEMATOCRIT 26.4 % (35.4-49); HEMOGLOBIN 8.1 GM/dl (11.7-16.9); LYMPH % 15.5 % (8-40); MCH 21.6 pg (25.7-33.7); MCHC 30.6 g/dl (32.0-35.9); MEAN CELL VOLUME 70.6 fl (80-96); MEAN PLT VOLUME 9.9 fl (7.5-11.1); NEUT % 74.5 % (42.8-82.8); PLATELET COUNT 153 K/MM3 (134-434); RBC 3.74 M/mm3 (4.00-5.60); RDW 14.8 % (11.9-15.9); WHITE BLOOD COUNT 6.9 K/mm3 (4.0-10.8)
[2017-12-02 08:34] LABS: ANION GAP 2 MMOL/L (8-16); BLOOD UREA NITROGEN 9 mg/dl (7-18); CALCIUM 8.2 mg/dl (8.4-10.2); CHLORIDE 105 mmol/L (98-107); CO2 27 mmol/L (22-28); CREATININE 0.9 mg/dl (0.6-1.3); GLUCOSE,RANDOM 86 mg/dl (74-106); MAGNESIUM 1.5 mg/dL (1.8-2.4); PHOSPHOROUS 2.8 mg/dl (2.5-4.6); POTASSIUM 3.8 mmol/L (3.5-5.1); SODIUM 134 mmol/L (136-145)
[2017-12-02] MEDS ORDERED: PT OWN MED DRAWER 7, Y5N ONE (09:49)
[2017-12-02] MEDS: predniSONE 1 MG TABLET (FP) PO SCH (10:00)
[2017-12-02] MEDS ORDERED: DAPSONE 100 MG TABLET PO SCH (10:00)
[2017-12-02] MEDS ORDERED: FLUoxetine HCL 20 MG CAPSULE (FP) PO SCH (10:00)
[2017-12-02] MEDS ORDERED: MAGNESIUM SULFATE IN WATER 2 GM/50 ML IVPB IVPB ONE (10:00)
--- NOTE | 2017-12-02 10:13 | PN ---
Progress Note, Physician History of Present Illness: Awake, alert Ambulatory Less cough No c/o chest pain/ dyspnea Temps down Afebrile WBC WNL - Current Medication List Current Medications: Active Medications Acetaminophen (Tylenol -) 650 mg PO Q4H PRN PRN Reason: PAIN 1-3 Last Admin: 12/01/17 23:54 Dose: 650 mg Albuterol Sulfate (Ventolin 0.083% Nebulizer Soln -) 1 amp NEB Q4H PRN PRN Reason: SHORT OF BREATH/WHEEZING Buspirone HCl (Buspar -) 5 mg PO TID [facility] Last Admin: 12/02/17 06:04 Dose: 5 mg Dapsone (Dapsone -) 50 mg PO DAILY [facility] Last Admin: 12/02/17 09:59 Dose: 50 mg Fluoxetine HCl (Prozac -) 40 mg PO Q2D@1000 [facility] Fluoxetine HCl (Prozac -) 20 mg PO Q2D@1000 [facility] Heparin Sodium (Porcine) (Heparin -) 5,000 unit SQ TID [facility] Last Admin: 12/02/17 06:03 Dose: 5,000 unit Levofloxacin (Levaquin 500 Mg Premixed Ivpb -) 500 mg in 100 mls @ 100 mls/hr IVPB DAILY@0800 [facility]; Protocol Last Admin: 12/02/17 09:30 Dose: 100 mls/hr Magnesium Sulfate (Magnesium Sulf 2 G/50 Ml Bag) 2 gm in 50 mls @ 50 mls/hr IVPB ONCE ONE Stop: 12/02/17 10:59 Prednisone (Deltasone -) 2 mg PO DAILY [facility] Last Admin: 12/02/17 10:00 Dose: 2 mg - Objective Vital Signs: Vital Signs Temperature 98.1 F 12/02/17 06:07 Pulse Rate 72 12/02/17 06:07 Respiratory Rate 20 12/02/17 06:07 Blood Pressure 131/70 12/02/17 06:07 O2 Sat by Pulse Oximetry (%) 93 L 12/01/17 23:15 Constitutional: Yes: No Distress Eyes: Yes: Conjunctiva Clear Cardiovascular: Yes: Regular Rate and Rhythm, S1, S2 Respiratory: Yes: CTA Bilaterally Gastrointestinal: Yes: Normal Bowel Sounds, Soft. No: Tenderness Edema: No Labs: CBC, BMP 12/02/17 07:54 12/02/17 07:54 Assessment/Plan Community acquired v. atypical pneumonia - improved Fever/ leukocytosis Lactic acidosis resolved Cephalosporin intolerance ( marrow suppressio Substitute levaquin 500mg po qd x 7d
--- NOTE | 2017-12-02 11:33 | DS ---
Physical Exam: SUBJECTIVE: Patient seen and examined, reports feeling well ambulatory throughout nursing station denies any chest pain, shortness of breath, or tactile fevers. OBJECTIVE:62 year old male with a PMH significant for Lupus, HTN, Depression/ anxiety, presented to the ED today with cough, congestion, and fever for 2 days. He was sent to the ED from [facility] after his CXR showed RLL consolidation and an O2 sat of 92%. Patient reports he started feeling sick 2 days ago with productive cough with yellow mucus, weakness, and chills. He did not receive the flu vaccine this year. He is on daily 2 mg of Prednisone and Dapsone for his Lupus, he denies ever having pneumonia in the past. He states he has never had a "lupus flare-up" since he was diagnosed 15 years ago. Upon admission to the ED, his temperature was 100.9, pulse 110, RR: 24. Labs notible for elevated WBC (13.9) and Lactic Acid (2.6). He was given a dose of Levaquin 750 mg IVP and NS. He reports he is feeling better since arriving at the ED. He denies dizziness, syncope, chest pain, palpitations, n/v/d. Vital Signs Period Temp Pulse Resp BP Sys/Horne Pulse Ox Last 24 Hr 98 F-99.3 F 60-72 18-20 131-156/70-78 93-97 PHYSICAL EXAM GENERAL: The patient is awake, alert, and fully oriented, in no acute distress. HEAD: Normal with no signs of trauma. EYES: PERRL, extraocular movements intact, sclera anicteric, conjunctiva clear. ENT: Ears normal, nares patent, oropharynx clear without exudates, moist mucous membranes. NECK: Trachea midline, full range of motion, supple. LUNGS: Breath sounds equal, course rhonchi to bilateral apexes, no wheezes, no crackles, no accessory muscle use. HEART: Regular rate and rhythm, S1, S2 without murmur, rub or gallop. ABDOMEN: Soft, nontender, nondistended, normoactive bowel sounds, no guarding, no rebound, no hepatosplenomegaly, no masses. EXTREMITIES: 2+ pulses, warm, well-perfused, no edema. NEUROLOGICAL: Cranial nerves II through XII grossly intact. Normal speech, gait not observed. PSYCH: Normal mood, normal affect. SKIN: Warm, dry, normal turgor, no rashes or lesions noted. LABS Laboratory Results - last 24 hr 12/02/17 12/02/17 07:54 07:54 WBC 6.9 RBC 3.74 L Hgb 8.1 L Hct 26.4 L MCV 70.6 L MCH 21.6 L MCHC 30.6 L RDW 14.8 Plt Count 153 MPV 9.9 Absolute Neuts (auto) 5.1 Neutrophils % 74.5 Lymphocytes % 15.5 Monocytes % 7.0 Eosinophils % 2.4 Basophils % 0.6 Sodium 134 L Potassium 3.8 Chloride 105 Carbon Dioxide 27 Anion Gap 2 L BUN 9 Creatinine 0.9 Creat Clearance w eGFR > 60 Random Glucose 86 Calcium 8.2 L Phosphorus 2.8 Magnesium 1.5 L Microbiology 11/29/17 17:32 Blood - Peripheral Venous Blood Culture - Preliminary NO GROWTH OBTAINED AFTER 48 HOURS, INCUBATION TO CONTINUE FOR 3 DAYS. 11/29/17 17:12 Blood - Peripheral Venous Blood Culture - Preliminary NO GROWTH OBTAINED AFTER 48 HOURS, INCUBATION TO CONTINUE FOR 3 DAYS. 11/30/17 21:30 Urine For Antigen Detection Legionella Antigen - Final, negative 11/30/17 21:30 Urine For Antigen Detection Streptococcus pneumoniae Antigen (M - Final, negative 11/29/17 18:35 Nares - Mrsa Screen - Right MRSA Screen - Final NO MRSA ISOLATED 11/29/17 18:35 Nares - Mrsa Screen - Left MRSA Screen - Final NO MRSA ISOLATED 11/29/17 17:10 Urine - Urine Clean Catch Urine Culture - Final Imaging Chest x-ray: right upper lobe infiltrate HOSPITAL COURSE: Patient was admitted from the emergency department for sepsis secondary to community-acquired pneumonia. Leukocytosis and lactic acidosis resolved. Patient was treated with 3 days of IV Levaquin. Urine antigens and blood cultures negative as above. Dr. Dillard infectious diseasephysician consulted and followed. Patient was noted to be hypotensive upon arrival which resolved with IV hydration. Patient has a known history of depression and anxiety, buspar and Prozac was continued on admission. plan - discharge home - levaquin 500mg bid for 7 days - return precautions reviewed all questions answered patient verbalizes understanding Date of Admission:11/29/17 Date of Discharge: 12/02/17 Minutes to complete discharge: 45 Discharge Summary Reason For Visit: PNEUMONIA MRSA Current Active Problems Lupus (Acute) Microcytic anemia (Acute) Pneumonia (Acute) Condition: Good - Instructions Diet, Activity, Other Instructions: You were admitted from the emergency department for pneumonia you were treated with IV antibiotics Please continue Levaquin daily as prescribed Please follow-up with your primary care physician within one week If any new or persistent symptoms develop please return to emergency department Referrals: Abraham Meehan MD [Primary Care Provider] - Disposition: HOME - Home Medications Comprehensive Discharge Medication List: Ambulatory Orders Buspirone HCl [Buspar -] 5 mg PO TID 10/24/12 Fluoxetine HCl [Prozac -] 20 mg PO Q48H 10/24/12 Fluoxetine HCl [Prozac -] 40 mg PO Q48H 10/24/12 Dapsone - 50 mg PO DAILY 11/29/17 Lisinopril 10 mg PO DAILY 11/29/17 predniSONE [Deltasone -] 2 mg PO DAILY 11/29/17
[2017-12-02 14:19] VITALS: BP 129/65; PULSE 61; TEMP 97.8
[2017-12-03] MEDS ORDERED: FLUoxetine HCL 20 MG CAPSULE (FP) PO SCH (10:00)
== END 2017-12-02 14:20 | disposition home or self-care (01) | DRG 720 ==
LOC: SUPCPDRO 16:50 → FER 16:50 → FM/S 20:02
PROVIDERS: ADMIT Internal Medicine; ATTEND Nurse Practitioner Family
DX: A41.9 Sepsis, unspecified organism (principal); J18.9 Pneumonia, unspecified organism; E87.2 Acidosis; M32.9 Systemic lupus erythematosus, unspecified; R65.20 Severe sepsis without septic shock; I10 Essential (primary) hypertension; F32.9 Major depressive disorder, single episode, unspecified; F41.9 Anxiety disorder, unspecified; E86.0 Dehydration; D50.9 Iron deficiency anemia, unspecified
CPT/HCPCS: 36415; 71046-TC-FY; 80048; 80053; 81003; 81015; 83605; 83735; 84100; 85025; 85027; 87040; 87070; 87081; 87086; 87205; 87899; 93005; 99285-25; J1644; J7030

== ENCOUNTER 2018-05-23 05:58 | Emergency (ER) | payer OTHER ==
[2018-05-23 06:15] VITALS: BP 149/90; PULSE 73; TEMP 98.5; BMI 25.8
[2018-05-23] MEDS ORDERED: DEXAMETHASONE SOD PHOSPHATE 10 MG/1 ML VIAL IVPUSH ONE (06:24)
[2018-05-23] MEDS ORDERED: FAMOTIDINE 20 MG/50 ML IVPB 20 MG/50 ML MG IVPB ONE ×2 (06:24→06:33)
[2018-05-23] MEDS ORDERED: LIDOCAINE VISCOUS 2% ORAL/TOP 20 ML UNIT-DOSE CUP MM ONE (06:26)
--- NOTE | 2018-05-23 06:27 | PDOC ---
History of Present Illness - General Chief Complaint: Choking Sensation Stated Complaint: FEEL SOMETHING IN MY THROAT Time Seen by Provider: 05/23/18 06:24 - History of Present Illness Initial Comments: 05/23/18 06:35 awoke from sleep feeling something stuck in the throat Timing/Duration: 1-3 hours Severity: moderate Modifying Factors: worse with: eating Associated Symptoms: denies: fever/chills, loss of appetite Past History - Past Medical History Allergies/Adverse Reactions: Allergies Allergy/AdvReac Type Severity Reaction Status Date / Time ceftriaxone sodium Allergy Unknown Verified 11/29/17 18:05 [From Rocephin] Home Medications: Ambulatory Orders Buspirone HCl [Buspar -] 5 mg PO TID 10/24/12 Fluoxetine HCl [Prozac -] 20 mg PO Q48H 10/24/12 Fluoxetine HCl [Prozac -] 40 mg PO Q48H 10/24/12 Dapsone - 50 mg PO DAILY 11/29/17 Lisinopril 10 mg PO DAILY 11/29/17 predniSONE [Deltasone -] 1 mg PO DAILY 11/29/17 Acetaminophen [Tylenol .Regular Strength -] 650 mg PO Q4H PRN tablet 12/02/17 Albuterol Sulfate Inhaler - [Ventolin Hfa Inhaler -] 2 inh PO Q4H PRN #1 inh Anemia: Yes (THALASSEMIA) Asthma: No Cancer: No Cardiac Disorders: No CVA: No COPD: No CHF: No Dementia: No Diabetes: No GI Disorders: No Disorders: No HTN: Yes Hypercholesterolemia: No Liver Disease: No Psychiatric Problems: Yes Seizures: No Thyroid Disease: No - Surgical History Appendectomy: Yes Orthopedic Surgery: Yes (bilateral knee replacement) - Immunization History TDAP Vaccination: No - Suicide/Smoking/Psychosocial Hx Smoking Status: No Smoking History: Unknown if ever smoked Have you smoked in the past 12 months: No Number of Cigarettes Smoked Daily: 0 Information on smoking cessation initiated: No Hx Alcohol Use: No Drug/Substance Use Hx: No Substance Use Type: None Hx Substance Use Treatment: No Review of Systems - Review of Systems All Other Systems: Reviewed and Negative *Physical Exam - Vital Signs Last Vital Signs Temp Pulse Resp BP Pulse Ox 98.5 F 73 18 149/90 97 05/23/18 06:12 05/23/18 06:12 05/23/18 06:12 05/23/18 06:12 05/23/18 06:12 - Physical Exam General Appearance: Yes: Nourished, Appropriately Dressed. No: Apparent Distress HEENT: positive: Normal Voice, Other (uvulitis, more marked proximally). negative: Muffled/Hoarse voice, Tonsillar Exudate, Tonsillar Erythema, Nasal Congestion Respiratory/Chest: positive: Lungs Clear Cardiovascular: positive: Regular Rhythm Gastrointestinal/Abdominal: positive: Normal Bowel Sounds Lymphatic: negative: Adenopathy Musculoskeletal: positive: Normal Inspection Extremity: positive: Normal Capillary Refill Integumentary: positive: Normal Color Neurologic: positive: Fully Oriented Medical Decision Making - Medical Decision Making 05/23/18 06:37 uvulitis probably allergic could be acid induced doubt medication induced treat for allergy and acid lidocaine to relieve symptoms *DC/Admit/Observation/Transfer Diagnosis at time of Disposition: Uvulitis - Discharge Dispostion Condition at time of disposition: Stable - Referrals Referrals: Abraham Meehan MD [Primary Care Provider] - - Patient Instructions - Post Discharge Activity
[2018-05-23] MEDS ORDERED: DEXAMETHASONE SOD PHOSPHATE 10 MG/1 ML VIAL ONE (06:33)
[2018-05-23] MEDS ORDERED: LIDOCAINE VISCOUS 2% ORAL/TOP 20 ML UNIT-DOSE CUP ONE (06:33)
--- NOTE | 2018-05-23 09:37 | PDOC ---
*Physical Exam - Vital Signs Last Vital Signs Temp Pulse Resp BP Pulse Ox 98.5 F 73 18 149/90 97 05/23/18 06:12 05/23/18 06:12 05/23/18 06:12 05/23/18 06:12 05/23/18 06:12 ED Treatment Course - Medications Given in the ED: ED Medications Discontinued Medications Generic Name Dose Route Start Last Admin Trade Name Arlen PRN Reason Stop Dose Admin Dexamethasone Sodium Phosphate 10 mg 05/23/18 06:24 05/23/18 06:37 Decadron Injection - IVPUSH 05/23/18 06:25 10 mg ONCE ONE Administration Diphenhydramine HCl 50 mg 05/23/18 06:24 05/23/18 06:37 Benadryl Injection - IVPUSH 05/23/18 06:25 50 mg ONCE ONE Administration Famotidine/Sodium Chloride 20 mg in 50 mls @ 100 mls/hr 05/23/18 06:24 06:37 Pepcid 20 Mg Premixed Ivpb - IVPB 05/23/18 06:53 100 mls/hr ONCE ONE Administration Lidocaine HCl 20 ml 05/23/18 06:26 05/23/18 06:37 Xylocaine 2% Viscous Oral - MM 05/23/18 06:27 20 ml ONCE ONE Administration Medical Decision Making - Medical Decision Making 05/23/18 09:36 pt feeling better airway patent tolerating oral intake will dc with pmd fu and supportive carea t home I discussed the physical exam findings, ancillary test results and final diagnoses with the patient. I answered all of the patient's questions. The patient was satisfied with the care received and felt comfortable with the discharge plan and treatment plan. The patient will call their primary care physician within 24 hours to arrange follow-up and will return to the Emergency Department with any new, persistent or worsening symptoms. *DC/Admit/Observation/Transfer Diagnosis at time of Disposition: Uvulitis - Discharge Dispostion Disposition: HOME Condition at time of disposition: Improved Decision to Admit order: No - Referrals Referrals: Abraham Meehan MD [Primary Care Provider] - - Patient Instructions Printed Discharge Instructions: DI for Uvulitis Additional Instructions: Return to the emergency department immediately with ANY new, persistent or worsening symptoms. You MUST call and follow up with your doctor tomorrow for further evaluation of your symptoms. Results were discussed with you. Please make sure your doctor reviews the results of your emergency evaluation. Print Language: HEBREW - Post Discharge Activity
== END 2018-05-23 09:47 | disposition home or self-care (01) ==
LOC: FER 05:58 → SUPCPDRO 05:58 → FER 09:47
PROC: 3E033GC Introduction of Other Therapeutic Substance into Peripheral Vein, Percutaneous Approach (ICD-10-PCS; principal; 2018-05-23)
DX: K12.2 Cellulitis and abscess of mouth (principal); I10 Essential (primary) hypertension; F99 Mental disorder, not otherwise specified; Z96.653 Presence of artificial knee joint, bilateral; D56.9 Thalassemia, unspecified
CPT/HCPCS: 99282-25; J1100

== ENCOUNTER 2020-03-04 10:10 | Emergency (ER) | payer OTHER ==
[2020-03-04 11:01] VITALS: TEMP 99.4; BMI 28.8
[2020-03-04 12:11] LABS: BASO % 1.1 % (0-2.0); EOS % 2.5 % (0-4.5); HEMATOCRIT 36.6 % (35.4-49); HEMOGLOBIN 11.5 GM/dl (11.7-16.9); LYMPH % 19.5 % (8-40); MCH 21.6 pg (25.7-33.7); MCHC 31.5 g/dl (32.0-35.9); MEAN CELL VOLUME 68.5 fl (80-96); MEAN PLT VOLUME 8.4 fl (7.5-11.1); MONO % 8.7 % (3.8-10.2); NEUT % 68.2 % (42.8-82.8); PLATELET COUNT 158 K/MM3 (134-434); RBC 5.35 M/mm3 (4.00-5.60); RDW 15.8 % (11.9-15.9); WHITE BLOOD COUNT 3.7 K/mm3 (4.0-10.8)
[2020-03-04 12:12] LABS: ADD RBC MORPHOLOGY YES
[2020-03-04 12:20] LABS: ALBUMIN 3.8 g/dl (3.4-5.0); BILIRUBIN,TOTAL 0.9 mg/dl (0.2-1); CALCIUM 8.6 mg/dl (8.5-10); CREATININE 0.9 mg/dl (0.55-1.3); POTASSIUM 3.8 mmol/L (3.5-5.1); TOT PROT 7.4 g/dl (6.4-8.2)
[2020-03-04 13:07] VITALS: BP 145/90; PULSE 66
[2020-03-04 14:24] LABS: N-TERMINAL BNP 214.4 pg/ml (5-125)
== END 2020-03-04 14:32 | disposition home or self-care (01) ==
LOC: FER 10:10
DX: R07.9 Chest pain, unspecified (principal); I10 Essential (primary) hypertension
CPT/HCPCS: 36415; 71046-TC-FY; 80053; 82550; 82553; 83880; 84484; 85025; 93005; 99285-25